=== PATIENT | female | born 1965 | race Caucasian/White ===

== ENCOUNTER 2018-12-09 14:31 | Emergency (ER) | payer SELFPAY ==
--- NOTE | 2018-12-09 15:11 | C.PDOC ---
Time Seen by Provider: 12/09/18 14:48 Chief Complaint (Nursing): Back Pain Past Medical History Vital Signs: Last Vital Signs Temp 98.2 F 12/09/18 14:36 Pulse 70 12/09/18 14:36 Resp 20 12/09/18 14:36 BP 119/75 12/09/18 14:36 Pulse Ox 98 12/09/18 14:36 Primary Care Provider: FAMILY PROVIDER,NO - Social History Hx Alcohol Use: No Hx Substance Use: No ED Course And Treatment O2 Sat by Pulse Oximetry: 98 Disposition - Disposition
--- NOTE | 2018-12-09 15:16 | C.PDOC ---
History Of Present Illness 53 year old female presents to ED with her daughter with lower back pain for the past 2 days. Patient states that while she was cleaning, their flat screen TV fell on her back. Patient has a PSHx of herniated disc surgery on 2005 and 2012. Patient states that the pain radiates down her legs and she has to lean a certain way in order to walk. Patient has no allergies. She states that solu- medrol, relaxol, and vitanevril alleviate her back pain. Patient denies abdominal pain, weakness, numbness, bladder incontinence, saddle anesthesia, and bowel incontinence. Time Seen by Provider: 12/09/18 14:48 Chief Complaint (Nursing): Back Pain History Per: Patient, Family (daughter) History/Exam Limitations: no limitations Onset/Duration Of Symptoms: Days (2) Current Symptoms Are (Timing): Still Present Quality Of Discomfort: "Pain" Previous Symptoms: Prior Surgery (herniated disc surgery) Associated Symptoms: denies: Incontinence, New Weakness, New Numbness Past Medical History Reviewed: Historical Data, Nursing Documentation, Vital Signs Vital Signs: Last Vital Signs Temp 98.2 F 12/09/18 14:36 Pulse 70 12/09/18 14:36 Resp 20 12/09/18 14:36 BP 119/75 12/09/18 14:36 Pulse Ox 98 12/09/18 14:36 Primary Care Provider: FAMILY PROVIDER,NO Other Surgeries: herniated disc surgery Family History: States: Unknown Family Hx - Social History Hx Alcohol Use: No Hx Substance Use: No Review Of Systems Except As Marked, All Systems Reviewed And Found Negative. Constitutional: Negative for: Fever, Chills, Weakness Gastrointestinal: Negative for: Abdominal Pain Genitourinary: Negative for: Incontinence Musculoskeletal: Positive for: Back Pain (lower back pain ), Leg Pain (bilateral leg pain ) Neurological: Negative for: Weakness, Numbness Physical Exam - Physical Exam Appears: Well, Non-toxic, No Acute Distress Skin: Normal Color, Warm, Dry, No Rash Head: Atraumatic, Normacephalic Eye(s): bilateral: Normal Inspection, PERRL, EOMI Oral Mucosa: Moist Throat: No Erythema, No Exudate Neck: Normal ROM, No Midline Cervical Tenderness, No Paracervical Tenderness, Supple Chest: Symmetrical, No Deformity Cardiovascular: Rhythm Regular, No Friction Rub, No Murmur Respiratory: No Accessory Muscle Use, No Rales, No Rhonchi, No Wheezing Gastrointestinal/Abdominal: Soft, No Tenderness Back: No Vertebral Tenderness, Paraspinal Tenderness (mild paralumbar tenderness), Other (Normal ROM) Extremity: Normal ROM, No Tenderness, Capillary Refill (<2 seconds), No Swelling Extremity: Bilateral: Atraumatic, Normal Color And Temperature, Normal ROM Neurological/Psych: Oriented x3, Normal Speech, Normal Cognition, Normal Motor, Normal Sensation Gait: Steady ED Course And Treatment O2 Sat by Pulse Oximetry: 98 (in RA) Pulse Ox Interpretation: Normal - Other Rad L-spine X-ray X-Ray: Interpreted by Me, Viewed By Me Interpretation: IMPRESSION: Mild to moderate degenerative changes. Narrowing of the intervertebral disc is space at L4-L5. No evidence of acute fracture or subluxation. Medical Decision Making Medical Decision Making: LS spine xray ordered. No acute fracture or dislocations. On re-exam, the patient is resting comfortably. Lungs are CTA, heart is RRR, abdomen is soft, non-tender and tolerating PO well. ambulatory in the ED with steady gait. Follow up with the medical doctor within 1-2 days. Return if worsened. Disposition - Disposition Referrals: Eric Soliman MD [Non-Staff] - Disposition: HOME/ ROUTINE Disposition Time: 16:30 Condition: STABLE Additional Instructions: Follow up with the medical doctor within 1-2 days. Return if worsened. Prescriptions: Cyclobenzaprine [Flexeril] 5 mg PO TID #21 tab Naproxen [Naprosyn] 500 mg PO BID #20 tab predniSONE [Prednisone] 10 mg PO BID #10 tab Instructions: Contusion (DC) Forms: [employer] ([place]) - Clinical Impression Clinical Impression: Contusion of back - PA / CONSERVATION OFFICER / Resident Statement MD/DO has reviewed & agrees with the documentation as recorded. (Sarah Amaya) - Scribe Statement The provider has reviewed the documentation as recorded by the Scribe (Sarah Bain) All medical record entries made by the Scribe were at my direction and personally dictated by me. I have reviewed the chart and agree that the record accurately reflects my personal performance of the history, physical exam, medical decision making, and the department course for this patient. I have also personally directed, reviewed, and agree with the discharge instructions and disposition.
[2018-12-09] MEDS ORDERED: MethylPREDNISolone 40 mg Vial IM STA (15:28)
[2018-12-09] MEDS ORDERED: MethylPREDNISolone 40 mg Vial ONE ×2 (15:43→15:45)
[2018-12-09 16:31] VITALS: BP 124/72; PULSE 74; RESP 18; TEMP 98.4
[2018-12-09 16:32] VITALS: O2SAT 98
--- NOTE | 2018-12-09 16:57 | RAD ---
Date of service: 12/09/2018 PROCEDURE: Radiographs of the Lumbar Spine. HISTORY: low back injury, pain COMPARISON: No prior. TECHNIQUE: 5 views obtained. FINDINGS: BONES: Normal alignment. No listhesis. No fracture. DISC SPACES: Narrowing of the intervertebral disc is space at L4-L5 OTHER FINDINGS: None. IMPRESSION: Mild to moderate degenerative changes. Narrowing of the intervertebral disc is space at L4-L5. No evidence of acute fracture or subluxation.
== END 2018-12-09 16:42 | disposition home or self-care (01) ==
LOC: C.ER 14:31
DX: S30.0XXA Contusion of lower back and pelvis, initial encounter (principal); W22.8XXA Striking against or struck by other objects, initial encounter
CPT/HCPCS: 72100; 96372; 99283; J1885; J2920